=== PATIENT | female | born 1990 | race Caucasian/White ===

== ENCOUNTER → 2020-03-13 08:43 | Outpatient (BNVA) | payer OTHER, SELFPAY | PROVIDERS: Visit Provider Advanced Practice Midwife ==

== ENCOUNTER 2020-03-19 15:24 | Outpatient (REF) | payer OTHER, SELFPAY ==
--- NOTE | ~2020-03-19 | US_ITS ---
EXAMINATION: US PELVIS COMPLETE US TRANSVAGINAL CLINICAL INFORMATION: Pelvic and perineal pain. Check IUD. COMPARISON: None TECHNIQUE: Transabdominal and transvaginal ultrasound of the pelvis is performed. FINDINGS: The uterus is anteverted and anteflexed measuring 6.6 cm in length, 3.1 cm in AP and 5.0 cm in transverse dimension. The uterus is homogeneous in echotexture. There is a copper IUD visualized in correct position within the endometrial canal. No focal lesion seen. Right ovary measures 3.4 x 1.7 x 2.3 cm and volume 7.0 mL. It appears unremarkable. Left ovary measures 2.5 x 2.2 x 2.6 cm and volume 7.5 mL. There is a complex cyst measuring 1.6 x 1.7 x 1.8 cm, likely hemorrhagic cyst. There is a small amount of free fluid in the cul-de-sac. US/US transvaginal IMPRESSION: Intrauterine copper IUD in correct position within the endometrial canal. Complex cyst likely hemorrhagic left ovary. It measures 1.8 cm.
--- NOTE | ~2020-03-19 | US_ITS ---
EXAMINATION: US PELVIS COMPLETE US TRANSVAGINAL CLINICAL INFORMATION: Pelvic and perineal pain. Check IUD. COMPARISON: None TECHNIQUE: Transabdominal and transvaginal ultrasound of the pelvis is performed. FINDINGS: The uterus is anteverted and anteflexed measuring 6.6 cm in length, 3.1 cm in AP and 5.0 cm in transverse dimension. The uterus is homogeneous in echotexture. There is a copper IUD visualized in correct position within the endometrial canal. No focal lesion seen. Right ovary measures 3.4 x 1.7 x 2.3 cm and volume 7.0 mL. It appears unremarkable. Left ovary measures 2.5 x 2.2 x 2.6 cm and volume 7.5 mL. There is a complex cyst measuring 1.6 x 1.7 x 1.8 cm, likely hemorrhagic cyst. There is a small amount of free fluid in the cul-de-sac. US/US pelvic complete IMPRESSION: Intrauterine copper IUD in correct position within the endometrial canal. Complex cyst likely hemorrhagic left ovary. It measures 1.8 cm.
== END 2020-03-19 15:25 | disposition home or self-care (01) ==
LOC: HO.US 15:24
PROVIDERS: PCP Family Medicine; Visit Provider Advanced Practice Midwife
DX: R10.2 Pelvic and perineal pain (principal)
CPT/HCPCS: 76830; 76856

== ENCOUNTER → 2020-03-26 14:25 | Outpatient (BNVA) | payer OTHER, SELFPAY | PROVIDERS: PCP Family Medicine; Visit Provider Advanced Practice Midwife ==

== ENCOUNTER 2020-06-22 14:52 | Outpatient (REF) | payer OTHER, SELFPAY ==
--- NOTE | ~2020-06-22 | US_ITS ---
EXAMINATION: PELVIC ULTRASOUND CLINICAL INFORMATION: Pain COMPARISON: Previous pelvic ultrasound March 2020 TECHNIQUE: Transabdominal and transvaginal pelvic ultrasound was performed. Transvaginal exam was performed for better visualization of the uterus and ovaries. FINDINGS: The uterus is anteverted and measures 6.9 x 2.9 x 4.7 cm in dimension. No focal uterine lesion is seen. There is an IUD in the uterus. Appears low 3 cm from the top of the uterine fundus. The endometrium does not appear thickened. No focal uterine lesion is seen. The cervix is normal appearing. The right ovary is seen transabdominally only and is normal-appearing and measures 2.7 x 2.7 x 1.9 cm. The left ovary is normal-appearing and measures 1.9 x 1.9 x 1.6 cm. The previously identified slightly complex identified left ovarian cyst is no longer seen. There is no fluid in the pelvis. US/US transvaginal IMPRESSION: Low position of IUD 3 cm from the top of the uterine fundus.
--- NOTE | ~2020-06-22 | US_ITS ---
EXAMINATION: PELVIC ULTRASOUND CLINICAL INFORMATION: Pain COMPARISON: Previous pelvic ultrasound March 2020 TECHNIQUE: Transabdominal and transvaginal pelvic ultrasound was performed. Transvaginal exam was performed for better visualization of the uterus and ovaries. FINDINGS: The uterus is anteverted and measures 6.9 x 2.9 x 4.7 cm in dimension. No focal uterine lesion is seen. There is an IUD in the uterus. Appears low 3 cm from the top of the uterine fundus. The endometrium does not appear thickened. No focal uterine lesion is seen. The cervix is normal appearing. The right ovary is seen transabdominally only and is normal-appearing and measures 2.7 x 2.7 x 1.9 cm. The left ovary is normal-appearing and measures 1.9 x 1.9 x 1.6 cm. The previously identified slightly complex identified left ovarian cyst is no longer seen. There is no fluid in the pelvis. US/US pelvic complete IMPRESSION: Low position of IUD 3 cm from the top of the uterine fundus.
== END 2020-06-22 14:53 | disposition home or self-care (01) ==
LOC: HO.US 14:52
PROVIDERS: PCP Family Medicine; Visit Provider Advanced Practice Midwife
DX: N83.292 Other ovarian cyst, left side (principal); R10.2 Pelvic and perineal pain
CPT/HCPCS: 76830; 76856

== ENCOUNTER → 2020-06-29 15:30 | Outpatient (BNVA) | payer OTHER, SELFPAY | PROVIDERS: PCP Family Medicine; Visit Provider Advanced Practice Midwife ==

== ENCOUNTER 2024-05-06 15:36 | Outpatient (REF) | payer BC, SELFPAY ==
--- NOTE | ~2024-05-06 | MR_ITS ---
EXAMINATION: MR BRAIN WITHOUT AND WITH CONTRAST CLINICAL INFORMATION: Weakness and numbness in the upper extremities and face. COMPARISON: None available. TECHNIQUE: Multiplanar, multisequence MRI of the brain was obtained before and after the intravenous administration of 10 mL gadolinium based without reported immediate complications. FINDINGS: Patient's motion. No restricted diffusion. No acute intracranial hemorrhage, mass effect, midline shift, hydrocephalus or herniation. Awad-white matter differentiation is normal. Posterior cranial fossa contents demonstrated no signal abnormality or gross lesions. Sellar/suprasellar region is normal. Craniocervical junction is normal. Flow-void signal within the main cerebral vessels is normal. No abnormal enhancing lesion and or mass in the intra-axial or the extra-axial compartment of the cranium. There is a small developmental venous anomaly, right frontal. Mild prominence of the nasopharynx, nonspecific. MR/MR head/brain wo/w con IMPRESSION: No acute or structural brain abnormality. No abnormal enhancement. No demyelinating plaques. Electronically signed by: Johnnie Roper MD 05/08/2024 09:23 AM EDT
[2024-05-06] MEDS: gadobutroL 10 ML VIAL IVPUSH (16:49)
--- OUTSIDE RECORDS SUMMARY | 2024-05-06 17:35 | XMS_ITS | Data Portability ---
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 Plan of Treatment Reminders Order Date Submit Date Provider Last Modified By Organization Details Last Modified Time Details Appointments None recorded. Lab cytology report, thin prep, smear or scraping, cervical or vaginal 2021 022 [facility] _[id number] [facility], [address], [place], [address], 3 03:46:12 Referral None recorded. Procedures None recorded. Surgeries None recorded. Imaging None recorded. Medication Orders Slynd 4 mg (28) tablet 2021 022 [id number], [address], [place], [place], [id number], 2 03:36:31 Patient Targets Encounter Date Encounter Id Patient Goals Patient Target Last Modified By Organization Details Last Modified Time Pt is 30 yo G0 w/ Paragard and wishes for removal. Removed without complications. Pt given 400mg ibuprofen in office for cramping. Bleeding precautions discussed. RTO as needed for anex. ~LAMONTE Oropeza 2 Not available 01/11/2021 10:09:06 Patient InstructionsNo instructions recorded. Reason for Referral None Reported. Results Created Date Observation Date Name Description Value Unit Range Abnormal Flag Note LastModifiedBy Organization Detail LastModifiedTime 03/16/19 22 03/17/2021 IGP, APTIM A HPV, RFX 16/18 ,45 diagnosis: Garett QUINTANA YUE FOR INTRA EPITH ELIAL LESIO N OR WISAM VALENCIA . Not Available [facility] ([facility]) [address] [facility], [place], [address], 03/18/2021 05:09:16 03/16/19 22 03/17/2021 IGP, APTIM A HPV, RFX 16/18 ,45 specimen adequacy: Garett green Satis facto ry for evalu ation . Endoc ervic al and/o r squam ous metap lasti c cells (endo cervi wendy compo nent) are prese nt. Not Available [facility] ([facility]) [address] [place], [address], 03/18/2021 05:09:16 03/16/19 22 03/17/2021 IGP, APTIM A HPV, RFX 16/18 ,45 clinician provided ICD10: Garett green Z01.4 19 Not Available [facility] ([facility]) [address] [place], [address], 03/18/2021 05:09:16 03/16/19 22 03/17/2021 IGP, APTIM A HPV, RFX 16/18 ,45 performed by: Garett rider, Cytot nataly green (ASCP ) Not Available [facility] ([facility]) [address] [place], [address], 03/18/2021 05:09:16 03/16/19 22 03/17/2021 IGP, APTIM A HPV, RFX 16/18 ,45 . . Not Available [facility] ([facility]) [address] [place], [address], 03/18/2021 05:09:16 03/16/19 22 03/17/2021 IGP, APTIM A HPV, RFX 16/18 ,45 note: Garett green The Pap smear is a scree herb test desig kandace to aid in the detec tion of pratibha ligna nt and malig nant condi tions of the uteri ne cervi x. It is not a diagn ostic proce dure and shoul d not be used as the sole means of detec ting cervi wendy cance r. Both false -posi tive and false -nega tive repor ts do occur . Not Available [facility] ([facility]) [address] [place], [address], 03/18/2021 05:09:16 03/16/19 22 03/17/2021 IGP, APTIM A HPV, RFX 16/18 ,45 test methodology: Commen t This liqui d based ThinP rep(R ) pap test was scree kandace with the use of an image guide nav woody. Not Available [facility] ([facility]) [address] [place], [address], 03/18/2021 05:09:16 03/16/19 22 03/17/2021 IGP, APTIM A HPV, RFX 16/18 ,45 HPV aptima Negati ve negati ve This nucle ic acid ampli ficat ion test detec ts fourt een high- risk HPV types (16,1 8,31, 33,35 ,39,4 5,51, 52,56 ,58,5 9,66, 68) witho ut diffe renti ation . Not Available [facility] ([facility]) [address] [place], [address], 03/18/2021 05:09:16 Result Notes Documentation Provider Name and Address Organization Details Recorded Time Cytology Report, Thin Prep, Smear Or Scraping, Cervical Or Vaginal : NILM/Neg HPV PATRICIA TAYLOR NP [address] [place] [address],[address], [place], [address], [place] [facility] 03/18/2021 10:27:32 Problems No Known Problems Procedures Surgical History Date Name Laterality Status Provider Name and Address Organization Details Recorded Time Date of Last Pap Smear completed PATRICIA TAYLOR NP [address] [facility],[address], [place], [address], [facility] 03/18/2021 10:27:23 1 IUD Removal WOB completed Sherly Skelton PA-C [address] [facility],[address], [place], [address], [facility] 01/11/2021 10:07:54 0 cardiac ablation using fluoroscopy guidance completed Camila Downs [place] [facility] 03/10/2021 15:34:05 5 Colposcopy completed Sherly Skelton PA-C [address] [facility],[address], [place], [address], [facility] 01/11/2021 09:48:14 Imaging Results None recorded. Procedure Notes None recorded. Medical Equipment None Reported. Allergies Allergen ID Allergen Name Allergen Category Reaction Reaction Severity Criticality Documentation Date Start Date Code Code System Note Provider Name and Address Organization Details Recorded Time 06973 Bactrim medicatio n Not available Not available Not available 03/16/2021 74642 9 RxNorm Parveen Davis null, [place] [facility] 2 10:24:17 64270 Product containin g penicilli n (product) medicatio n Not available Not available Not available 03/16/2021 81267 8001 SNOMED Parveen Davis null, [place] [facility] 2 10:24:25 Medications Name Sig Start Date Stop Date Status Note LastModified by Organization Details LastModified Time Slynd 4 mg (28) tablet Take 1 tablet every day by oral route. active Not Available Not Available No t Available Vitals Date Recorded Body height Body mass index (BMI) Body weight Body temperature Systolic blood pressure Diastolic blood pressure Provider Name and Address Organization Details Last Updated DateTime 2 167.64 cm 39.7 kg/m2 460117. 72 g 97.7 [degF] 110 mm[Hg] 60 mm[Hg] Parveen Davis [place] [facility] 2 10:24:06 Date Recorded Body height Body mass index (BMI) Body weight Heart rate Body temperature Systolic blood pressure Diastolic blood pressure Provider Name and Address Organization Details Last Updated DateTime 1 167.64 cm 40.4 kg/m2 082979. 09 g 80 /min 98.4 [degF] 120 mm[Hg] 68 mm[Hg] Sherly rodriguez PA-C [address] [place] [address] [address], [place], [address], [place] [facility] 09:46:53 Social History Question Answer Notes LastModified by Organizat ion Details LastModified Time Tobacco Smoking Status Never Smoker Parveen Davis null, [place] [facility] 03/16/2021 10:28:55 Do You Have An Advance Directive? No [email or web address] Information n ot available 03/16/2021 What Is Your Level Of Alcohol Consumption? Occasional [email or web address] Information not available 01/11/2021 Is Blood Transfusion Acceptable In An Emergency? Yes Information not available 03/16/2021 What Is Your Level Of Caffeine Consumption? Moderate [email or web address] Information not available 01/11/2021 In The 14 Days Before Symptom Onset, Have You Had Close Contact With A Laboratory-confirm ed COVID-19 While That Case Was Ill? No Information n ot available 03/16/2021 In The 14 Days Before Symptom Onset, Have You Had Close Contact With A Person Who Is Under Investigation For COVID-19 While That Person Was Ill? No [email or web address] Information not available 03/16/2021 Are You Currently Employed? Yes [email or web address] Information not available 03/16/2021 What Type Of Diet Are You Following? 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 0 [email or web address] Information not available 03/16/2021 Do You Use Protection During Sex? No [email or web address] Information not available 01/11/2021 What Is Your Relationship Status? [email or web address] Information not available 01/11/2021 Do You Use Your Seat Belt Or Car Seat Routinely? Yes [email or web address] Information not available 03/16/2021 Are You Sexually Active? Yes [email or web address] Information not available 03/16/2021 Do You Use Any Illicit Or Recreational Drugs? No Information not available 01/11/2021 Has Tobacco Cessation Counseling Been Provided? No Information not available 01/11/2021 Sex: Unknown Functional Status Question Answer Note LastModified by Organization D etails LastModified Time Are you able to care for yourself? Yes [email or web address] Information n ot available 03/16/2021 Mental Status None recorded. Family History Relationship Description Onset Age of this Age Resolved Age Notes LastModified by Organization Details LastModified Time Father No current problems or disability [email or web address] Not available 09/2021 10:28:39 Mother No current problems or disability [email or web address] Not available 09/2021 10:28:39 Medical History Condition Response Allergies (Food, seasonal, environmental ) N Heart Problems N Other N Anxiety/Depression N Blood Transfusion N Drug/Latex Allergies/Reactions N Thyroid Problems N Kidney or Bladder Problems N Fibromyalgia/Arthritis/Rheum N Blood Clots/Clotting Disorder Y Dermatologic Disorders N GI Problems N Defects or Inherited Disease N Breast Problem N Anemia N DEXA N Anesthesia Complications N Diabetes N Hepatitis/Liver Disease N Other Psychiatric Illness N History of Sexually Transmitted Disease N History of abnormal pap N Cancer N Hematologic (blood) disorders Y Varicosities N Abuse/Domestic Violence N Lung Disease (Asthma,TB, Pneumonia) N Trauma/Violence N Endometriosis N High Cholesterol N Headaches N Hypertension N Neurologic/Epilepsy/Stroke N Gynecological History Statement/Question Response Abnormal Pap Y Flow Moderate Date of LMP 02/16/2021 STIs/STDs N Colposcopy 02/06/2014 HPV Vaccine Y Duration of Flow (days) 5 Current Control Method Condoms Frequency of Cycle (Q days) 28 Sexually Active? Y Control at End of Visit BCPs Menses Monthly Y Date of Last Pap Smear 03/16/2021 Sexual Problems? N LMP Approximate Desired Control Method BCPs Obstetrics History GPAL:G 0 P 0 0 0 0 Immunizations Vaccine Type Date Status Note Provider Nam e and Address Organization Details Recorded Time COVID-19, mRNA, LNP-S, PF, 100 mcg/0.5mL dose or 50 mcg/0.25mL dose 04/20/2020 completed Parveen Davis null, [place] [facility] 03/16/2021 10:29:32 COVID-19, mRNA, LNP-S, PF, 100 mcg/0.5mL dose or 50 mcg/0.25mL dose 05/18/2020 completed Parveen Davis null, [place] [facility] 03/16/2021 10:29:47 Past Encounters Encounter ID Performer Location Encounter Start Date Encounter Closed Date Diagnosis/Indication Diagnosis SNOMED-CT Code Diagnosis ICD10 Code Diagnosis Note [id number] Sherly Skelton PA-C [facility] [place] [address],[facility] [address] [place] [address] 01/11/2021 08:58:00 01/11/2021 13:35:25 Pain in pelvis 09287778 R10.2 Removal of intrauterine device 14837509 Z30.432 [id number] Becky Farrell [facility] [place] [address],[facility] [address] [place] [address] 03/16/2021 10:02:38 03/16/2021 11:06:01 Gynecologic examination 85054788 Z01.419 SBE, contracept ion, safe relationsh ips, diet and exercise discussed. Has one male sexual partner, feels safe in this relationsh ip. Pap smear with cotesting collected today. Discussed ASCCP guidelines . Scanty menses on exam. Today is CD1. Might need repeat pap, pt v/u. Contracept ion care management 822956280 Z30.9 Hx of DVT. States her other providers involved in this management , including a hematologi st and PCP, stated this was an isolated incident r/t having a cardiac ablation. States these providers have approved her using either P4 or non-hormon al contracept ion. Presented for care last visit because she needed a paragard removed from her cervix. Discussed LARC, POP, Phexxi and condoms. Pt doesn't want to do LARC again after the experience she had w/ her paragard. Currently using condoms but her and her partner don't like this option. Not interested in Phexxi. Desires trial of POP. Agreed to a trial of slynd. Reviewed how to start this medication and bleeding expectatio ns. Patient safe to {{start* c ontinue re sume}} POP according to [facility] guidelines and e-scribed for one year. Sample given. Instructed to call if Rx is over $20 so we can send it to the [facility]. Dicsussed stopping pills when she is ready to start TTC. Health Concerns Section Related Observation LastModified by Organization Detai ls LastModified Time None Recorded Concern Status LastModified by Organization Details LastModified Time None Recorded Advance Directives Directive N: Payers Encounter Date Sequence Insurance Name Policy Number Policy Patel Covered Member ID Ptael Member ID Guarantor Name 01/11/2021 1 [facility] [id number] Rupa Tran [id number] 1 Rupa Tran 03/16/2021 1 [facility] [id number] Rupa Tran [id number] 1 Rupa Tran Notes Date Note Type Note Provider Name and Address Organization Details Recorded Time 01/11/2021 text/html Pt is new to our practice, recently moved from [place]. c/o abd pain, cramping, heavy periods with copper IUD. She had it placed in 07/2019 and wishes to have it removed at this time. She had US approx 6 mos ago for confirmation of placement due to symptoms and it was confirmed OK at that time. Symptoms have gotten worse since then. She denies any other abd pain, fever, vaginal discharge, itching. She is sexually active, , monogamous. ~EH Sherly Skelton PA-C [address] [place] [address],[address], [place], [address], [place] [facility] 01/11/2021 10:11:12 03/16/2021 text/html Pt is here today for her annual exam. Pt currently uses condoms for contraception. Pt states she had a blood clot and had to have IUD removed. Pt states she has been cleared by her PCP to resume control if she wishes. Pt would like to discuss POP options. Pt states she may want to ttc in the next 1-2 years. Pt declines need for assistant cross country coach in room during today's exam. Becky charles, [place] [facility] 03/16/2021 11:36:07 OBGyn Episode No OBEpisode recorded.
--- OUTSIDE RECORDS SUMMARY | 2024-05-06 17:35 | XMS_ITS | Data Portability ---
Author Organization STEPHANIE DONALD Peñaloza_[facility] Address [address] [place] [address] Assessment Encounter Date Assessment Date Assessment LastModified by Organization Details LastModified Time 01/15/2021 01/15/2021 COVID vaccine X 2 [email or web address] Not available 01/15/2021 09:58:16 Plan of Treatment Reminders Order Date Submit Date Provider Last Modified By Organization Details Last Modified Time Details Appointments None recorded. Lab vitamin D, 25-hydroxy, total, serum 2020 021 On license of [facility] ([facility]), [address], [facility], [place], [address], 23:21:41 CBC w/ auto diff 2020 021 On license of [facility] ([facility]), [address], [facility], [place], [address], 22:39:20 CMP, serum or plasma 2020 021 On license of [facility] ([facility]), [address], [facility], [place], [address], 23:09:19 TSH, serum or plasma 2020 021 On license of [facility] ([facility]), [address], [facility], [place], [address], 23:32:43 lipid panel, serum 2020 On license of [facility] ([facility]), [address], [facility], [place], [address], 23:09:26 urinalysis, complete 2020 [email or web address] [facility] ([facility]), [address], [facility], [place], [address], 09:20:14 HbA1c (hemoglobin A1c), blood 2020 021 On license of [facility] ([facility]), [address], [facility], [place], [address], 01:06:40 Referral hematologis t referral - Please schedule and contact patient with appointment information . Fax confirmatio n date/time to [phone] Attn: Sara Thank you 2020 [email or web address] Brunilda Javed MD, [address] [place] [address], [address], 11:28:05 Procedures None recorded. Surgeries None recorded. Imaging None recorded. Medication Orders None recorded. Patient TargetsNo targets recorded. Patient Instructions Encounter Date Encounter Id Patient Instructions Last Modified By Organization Details Last Modified Time 01/15/2021 [id number] supraventricular tachycardia: care instructions [email or web address] Not available 01/15/2021 10:08:50 body mass index: care instructions [email or web address] Not available 01/15/2021 10:08:50 learning about healthy weight [email or web address] Not available 01/15/2021 10:08:50 Reason for Referral Please schedule and contact patient with appointment information. Fax confirmation date/time to [phone] Attn: Sara Thank you Referring Physician: Miesha Painting, Family Medicine, Encounter Date: 01/15/2021 Results Created Date Observation Date Name Description Value Unit Range Abnormal Flag Note LastModifiedBy Organization Detail LastModifiedTime 01/16/20 21 01/15/2021 CBC WITH DIFFE RENTI AL WBC 8.3 x1000 /mm3 4.3-10 .0 Not Available [facility] [place] (Lab) [address] [place] [address], [address], 01/15/2021 22:44:28 01/16/20 21 01/15/2021 CBC WITH DIFFE RENTI AL RBC 4.50 x1000 000/m m3 4.00-5 .40 Not Available [facility] [place] (Lab) [address] [place], [address], 01/15/2021 22:44:28 01/16/20 21 01/15/2021 CBC WITH DIFFE RENTI AL HGB 13.5 gm/dL 12.0-1 6.0 Not Available [facility] [place] (Lab) [address] [place], [address], 01/15/2021 22:44:28 01/16/20 21 01/15/2021 CBC WITH DIFFE RENTI AL HCT 46.1 % 35.0-4 7.0 Not Available [facility] [place] (Lab) [address] [place], [address], 01/15/2021 22:44:28 01/16/20 21 01/15/2021 CBC WITH DIFFE RENTI AL MCV 102.4 fL 81.0-9 7.0 high Not Available [facility] [place] (Lab) [address] [place], [address], 01/15/2021 22:44:28 01/16/20 21 01/15/2021 CBC WITH DIFFE RENTI AL MCH 30.0 pg 27.0-3 4.0 Not Available [facility] [place] (Lab) [address] [place] [address], [address], 01/15/2021 22:44:28 01/16/20 21 01/15/2021 CBC WITH DIFFE RENTI AL MCHC 29.3 % 32.0-3 6.0 low Not Available [facility] [place] (Lab) [address] [place], [address], 01/15/2021 22:44:28 01/16/20 21 01/15/2021 CBC WITH DIFFE RENTI AL RDW 13.5 11.5-1 4.5 Not Available [facility] [place] (Lab) [address] [place], [address], 01/15/2021 22:44:28 01/16/20 21 01/15/2021 CBC WITH DIFFE RENTI AL platelet 403 x1000 /mm3 150-40 0 high Not Available [facility] [place] (Lab) [address] [place], [address], 01/15/2021 22:44:28 01/16/20 21 01/15/2021 CBC WITH DIFFE RENTI AL diff type? Auto Diff Not Available [facility] (Lab) [address] [place], [address], 01/15/2021 22:44:28 01/16/20 21 01/15/2021 CMP albumin 4.3 gm/dL 3.5-5. 2 Not Available [facility] [place] (Lab) [address] [place], [address], 01/15/2021 23:09:24 01/16/20 21 01/15/2021 CMP calcium, serum 9.5 mg/dL 8.4-10 .2 Not Available [facility] [place] (Lab) [address] [place], [address], 01/15/2021 23:09:24 01/16/20 21 01/15/2021 CMP T. protein 7.4 gm/dL 6.0-8. 3 Not Available [facility] [place] (Lab) [address] [place], [address], 01/15/2021 23:09:24 01/16/20 21 01/15/2021 CMP glucose level 102 mg/dL 70-105 Not Available [facility] [place] (Lab) [address] [place], [address], 01/15/2021 23:09:24 01/16/20 21 01/15/2021 CMP BUN 15 mg/dL 7-26 Not Available [facility] [place] (Lab) [address] [place], [address], 01/15/2021 23:09:24 01/16/20 21 01/15/2021 CMP creatinine level 0.8 mg/dL 0.6-1. 1 Not Available [facility] [place] (Lab) [address] [place], [address], 01/15/2021 23:09:24 01/16/20 21 01/15/2021 CMP bili total 0.5 mg/dL 0.2-1. 2 Not Available [facility] [place] (Lab) [address] [place], [address], 01/15/2021 23:09:24 01/16/20 21 01/15/2021 CMP alk phos 100 U/L 40-150 Not Availab le [facility] [place] (Lab) [address] [place], [address], 01/15/2021 23:09:24 01/16/20 21 01/15/2021 CMP AST 16 U/L 5-34 Not Available [facility] [place] (Lab) [address] [place], [address], 01/15/2021 23:09:24 01/16/20 21 01/15/2021 CMP sodium 140 mmol/ L 136-14 5 Not Available [facility] [place] (Lab) [address] [place], [address], 01/15/2021 23:09:24 01/16/20 21 01/15/2021 CMP potassium 4.5 mmol/ L 3.5-5. 1 Not Available [facility] [place] (Lab) [address] [place], [address], 01/15/2021 23:09:24 01/16/20 21 01/15/2021 CMP chloride 108 mmol/ L 98-107 high Not Available [facility] [place] (Lab) [address] [place], [address], 01/15/2021 23:09:24 01/16/20 21 01/15/2021 CMP CO2 20 mmol/ L 22-29 low Not Available [facility] [place] (Lab) [address] [place], [address], 01/15/2021 23:09:24 01/16/20 21 01/15/2021 CMP agap 12 mmol/ L 6-17 Not Available [facility] [place] (Lab) [address] [place], [address], 01/15/2021 23:09:24 01/16/20 21 01/15/2021 CMP ALT 13 U/L <=55 Not Available [facility] [place] (Lab) [address] [place], [address], 01/15/2021 23:09:24 01/16/20 21 01/15/2021 CMP glomerular filtration rate (MDRD) 83 mL/mi n >=60 The GFR is calcu lated using the MDRD formu la and is valid for adult s over 18 yea rs with adjus tment s for age, sex, and race. The calcu latio n is not valid for pa tient s on dialy sis or with rapid ly montenegro ing kidne y funct ion. Patie nts with GFR less than 60 are defin ed as edinin g chron ic kidne y disea se. A gradi ng syste m o f decre ased kidne y funct ion has been propo sed: 90 - 60 mild, 59 -30 moder ate, 29 -15 sever e. Not Available [facility] [place] (Lab) [address] [place], [address], 01/15/2021 23:09:24 01/16/20 21 01/15/2021 LIPID PROFI LE cholesterol 259 mg/dL <=199 high Not Available [facility] [place] (Lab) [address] [place] [address], [address], 01/15/2021 23:09:26 01/16/20 21 01/15/2021 LIPID PROFI LE triglyceride 171 mg/dL <=149 high Not Available [facility] [place] (Lab) [address] [place] [address], [address], 01/15/2021 23:09:26 01/16/20 21 01/15/2021 LIPID PROFI LE HDL 60 mg/dL >=60 HDL Refer ence Range based on NCEP guide lines Not Available [facility] [place] (Lab) [address] [place], [address], 01/15/2021 23:09:26 01/16/20 21 01/15/2021 LIPID PROFI LE LDL 165 mg/dL <=99 high LDL Refer ence Range based on NCEP guide lines Not Available [facility] [place] (Lab) [address] [place], [address], 01/15/2021 23:09:26 01/16/20 21 01/15/2021 LIPID PROFI LE cholesterol/ HDL ratio 4 TATE STERO L/HDL INTER PRETA TION: <4.0 = DECRE ASED CORON JYOTHI RISK 4.1-5 .9 = AVERA GE CORON JYOTHI RISK >6.0 = INCRE ASED CORON JYOTHI RISK Not Available [facility] [place] (Lab) [address] [place], [address], 01/15/2021 23:09:26 01/16/20 21 01/15/2021 VITAM IN D 25 SP vitamind 25-hyd 24.8 NG/mL 30.0-5 0.0 low Vitam in D Statu s Range Defic iency <20 ng/mL Insuf ficie ncy 20 - 30 ng/mL Suffi cienc y 31 - 100 ng/mL Toxic ity >100 ng/mL Not Available [facility] [place] (Lab) [address] [place], [address], 01/15/2021 23:21:41 01/16/20 21 01/15/2021 TSH TSH 0.94 uIU/m L 0.35-4 .94 Not Available [facility] [place] (Lab) [address] [place], [address], 01/15/2021 23:32:43 01/16/20 21 01/15/2021 A1C HEMOG LOBIN HGB A1C 5.8 % 4.0-6. 0 Not Available [facility] [place] (Lab) [address] [place], [address], 01/16/2021 01:06:40 01/16/20 21 01/15/2021 A1C HEMOG LOBIN estimated average glucose 120 mg/dL Not Available [facility] [place] (Lab) [address] [place], [address], 01/16/2021 01:06:40 01/16/20 21 01/15/2021 AUTOM ATED DIFF neut percent 65 % 53-75 Not Available [facility] [place] (Lab) [address] [place], [address], 01/15/2021 22:44:26 01/16/20 21 01/15/2021 AUTOM ATED DIFF lymph percent 28 % 20-40 Not Available [facility] [place] (Lab) [address] [place], [address], 01/15/2021 22:44:26 01/16/20 21 01/15/2021 AUTOM ATED DIFF mono percent 5 % 3-7 Not Available [facility] [place] (Lab) [address] [place], [address], 01/15/2021 22:44:26 01/16/20 21 01/15/2021 AUTOM ATED DIFF eos percent 1 % 1-6 Not Available [facility] [place] (Lab) [address] [place], [address], 01/15/2021 22:44:26 01/16/20 21 01/15/2021 AUTOM ATED DIFF baso percent 1 % 0-1 Not Available [facility] [place] (Lab) [address] [place], [address], 01/15/2021 22:44:26 01/16/20 21 01/15/2021 AUTOM ATED DIFF neutro auto abs 5.4 x1000 /mm3 1.8-7. 7 Not Available [facility] [place] (Lab) [address] [place], [address], 01/15/2021 22:44:26 01/16/20 21 01/15/2021 AUTOM ATED DIFF lymph auto abs 2.3 x1000 /mm3 1.0-4. 8 Not Available [facility] [place] (Lab) [address] [place], [address], 01/15/2021 22:44:26 01/16/20 21 01/15/2021 AUTOM ATED DIFF mono auto abs 0.4 x1000 /mm3 0.1-1. 0 Not Available [facility] [place] (Lab) [address] [place], [address], 01/15/2021 22:44:26 01/16/20 21 01/15/2021 AUTOM ATED DIFF eos auto abs 0.1 x1000 /mm3 0.0-0. 5 Not Available [facility] [place] (Lab) [address] [place], [address], 01/15/2021 22:44:26 01/16/20 21 01/15/2021 AUTOM ATED DIFF basophil auto abs 0.1 x1000 /mm3 0.0-0. 2 Not Available [facility] [place] (Lab) [address] [place], [address], 01/15/2021 22:44:26 01/16/20 21 01/15/2021 AUTOM ATED DIFF Ig percent .20 % .00-.5 9 Not Available [facility] [place] (Lab) [address] [place], [address], 01/15/2021 22:44:26 01/16/2001/15/2021 AUTOM ATED DIFF Ig auto abs .020 x1000 /mm3 .000-. 384 Not Available [facility] [place] (Lab) [address] [place], [address], 01/15/2021 22:44:26 Result Notes None recorded. Problems Name Problem SNOMED Code Status Onset Date Resolution Date Notes Provider Name and Address Organization Details Recorded Time Supraventricul ar tachycardia 5002223 Active 2020 Miesha Painting MD [address] [place] [address], [phone], [facility] 09:49:55 History of pulmonary embolus 306585182 Active 2020 Miesha Painting MD [address] [place] [address], [phone], [facility] 09:57:52 Problem Notes None recorded. Procedures Surgical History Date Name Laterality Status Provider Name and Address Organization Details Recorded Time 08/07/2019 Date of Last Pap Smear completed [facility] 01/15/2021 09:25:45 Imaging Results None recorded. Procedure Notes None recorded. Medical Equipment None Reported. Allergies Allergen ID Allergen Name Allergen Category Reaction Reaction Severity Criticality Documentation Date Start Date Code Code System Note Provider Name and Address Organization Details Recorded Time 899750 Product containin g penicilli n (product) medicatio n rash Not available Not available 01/15/2021 07373 8001 SNOMED [facility] 09:23:02 391726 Bactrim medicatio n rash Not available Not available 01/15/2021 02217 9 RxNorm [facility] 09:23:12 Medications Not known to be on any medication Vitals Date Recorded Body weight Body temperature Heart rate Body mass index (BMI) Body height Systolic blood pressure Diastolic blood pressure Provider Name and Address Organization Details Last Updated DateTime 248339. 53 g 97.5 [degF] 97 /min 43.1 kg/m2 168.91 cm 137 mm[Hg] 60 mm[Hg] Sarah BROWN [facility] 09:23:19 Social History Question Answer Notes LastModified by Organizat ion Details LastModified Time Tobacco Smoking Status Never Smoker STEPHANIE Genao [facility] 01/15/2021 09:24:14 In The Last 12 Months Did You Skip Medications To Save Money? No [email or web address] Information not available 01/15/2021 In The Last 12 Months, Was There A Time When You Needed To See A Doctor But Could Not Because Of Cost? No [email or web address] Information not available 01/15/2021 In The Last 12 Months, Have You Ever Had To Go Without Health Care Because You Didn? t Have A Way To Get There? No [email or web address] Information not available 01/15/2021 In The Last 12 Months Did You Ever Eat Less Than You [place] You Should Because There Wasn? t Enough Money For Food? No [email or web address] Information not available 01/15/2021 In The Past 12 Months Has The Social Median, Gas, Oil, Or Water [employer]news Threatened To Shut Off Services In Your Home? No [email or web address] Information not available 01/15/2021 Are You Worried That In The Next 2 Months You May Not Have Stable Housing? No [email or web address] Information not available 01/15/2021 Do You Feel Physically And Emotionally Unsafe Where You Currently Live? No [email or web address] Information not available 01/15/2021 Do You Want Help Finding Or Keeping Work Or A Job? No [email or web address] Information not available 01/15/2021 Do You Want Help With School Or Training? For Example, Starting Or Completing Job Training Or Getting A High School Diploma, GED, Or Equivalent? No [email or web address] Information not available 01/15/2021 Do You Often Feel Lonely? No [email or web address] Information not available 01/15/2021 Have You Had A Fever And/or Symptoms Of A Lower Respiratory Illness (cough, Difficulty Breathing, Etc)? No [email or web address] Information not available 01/15/2021 Have You Had Any Of These Symptoms: Chills ,Headache, Fatigue, Muscle Or Body Aches , Sore Throat, New Loss Of Taste Or Smell, Nausea Or Vomiting, Or Diarrhea? No [email or web address] Information not available 01/15/2021 Have You Had A COVID-19 Vaccine In The Last 7 Days? No [email or web address] Information not available 01/15/2021 Sex: Female Functional Status None recorded. Mental Status None recorded. Family History Relationship Description Onset Age of this Age Resolved Age Notes LastModified by Organization Details LastModified Time Father No current problems or disability [email or web address] Not available 01/15 09:24:10 Mother No current problems or disability [email or web address] Not available 01/15 09:24:10 Medical History No medical history recorded. Gynecological History Statement/Question Response Date of Last Pap Smear 08/07/2019 Date of LMP 12/22/2020 Obstetrics History GPAL:G 0 P 0 0 0 0 Past Encounters Encounter ID Performer Location Encounter Start Date Encounter Closed Date Diagnosis/Indication Diagnosis SNOMED-CT Code Diagnosis ICD10 Code Diagnosis Note [id number] Miesha Painting MD [facility] 8[facility]L [address] [facility], [address]th [place] [address] 01/15/2021 09:18:17 01/15/2021 10:09:46 Adult health examination 073690904 Z00.00 History of pulmonary embolus 663517915 Z86.711 Supraventr icular tachycardia 9022527 I47.1 s/p ablation Body mass index 30+ - obesity 890031500 Z68.30 Vitamin D deficiency 347 33167 E55.9 Health Concerns Section Related Observation LastModified by Organization Detai ls LastModified Time None Recorded Concern Status LastModified by Organization Details LastModified Time None Recorded Advance Directives Directive None Recorded Payers Encounter Date Sequence Insurance Name Policy Number Policy Patel Covered Member ID Patel Member ID Guarantor Name 01/15/2021 1 [facility] [id number] Rupa Tran [id number] Rupa Tran Notes Date Note Type Note Provider Name and Address Organization Details Recorded Time 01/15/2021 text/html 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
--- OUTSIDE RECORDS SUMMARY | 2024-05-06 17:35 | XMS_ITS | Continuity of Care Document ---
Author Organization [facility] Address [address] [place] [address]- Care Team Providers Care Stocking Inspector Name Role Phone Melida Madden MD Primary Care Physician [place] [facility] [place] - 05/02/24 [facility] [address] [place] [address]- Attending Physician: AdmMarcio kaur Admitting Physician: AdmtrMarcio Referring Physician: Admtr, Ar8 Encounter Type: Triage Allergies, Adverse Reactions, Alerts Substance Criticality Severity Reaction Reaction Severity Status penicillins Active Bactrim Active Immunizations Given and Recorded Vaccine Date Status Refusal Reason Poliovirus Vaccine, Inactivated 07/07/93 Recorded Poliovirus Vaccine, Inactivated 04/06/90 Recorded Poliovirus Vaccine, Inactivated 88 Recorded Poliovirus Vaccine, Inactivated 88 Recorded diphtheria/tetanus/pertussis, acel(DTaP) 07/07/93 Recorded diphtheria/tetanus/pertussis, acel(DTaP) 04/06/90 Recorded diphtheria/tetanus/pertussis, acel(DTaP) 01/06/89 Recorded diphtheria/tetanus/pertussis, acel(DTaP) 88 Recorded diphtheria/tetanus/pertussis, acel(DTaP) 88 Recorded Measles/Mumps/Rubella Virus Vaccine 11/06/89 Recor ded haemophilus b conjugate (PRP-T) vaccine 11/06/89 R ecorded Medications Colace sodium 100 mg oral capsule 100 mg, 1, capsule, By Mouth, 2 times a day, PRN, # 20 capsule, Refills 0, Tot. Refills 0, Maintenance, for constipation, 12/15/22 10:06:00 AM EST, Route to Pharmacy Electronically, [facility] #[id number], Partial fill upon patient request if the prescription is for a schedule II opioid drug., 168.7, cm, 12/15/22 7:44:00 EST, Height, 121.2, kg, 12/15/22 7:44:00 EST, Dry Weight Start Date: 12/15/22 Status: Ordered Quantity: 20.0 Unit: capsule Repeat number: 1 gabapentin 100 mg oral capsule 300 mg, 3, capsule, By Mouth, Daily at bedtime, Start 1 cap nightly. May increase to 2 caps in 3 days, then 3 caps 3 days later, for nerve pain, # 90 capsule, Refills 0, Tot. Refills 0, Maintenance, 04/22/24 2:32:00 PM EDT, Route to Pharmacy Electronically, [facility] #[id number], Partial fill upon patient request if the prescription is for a schedule II opioid drug., 168.7, cm, 04/02/24 15:45:00 EST, Height, 121.2, kg, 12/15/22 7:44:00 EST, Dry Weight Start Date: 04/22/24 Status: Ordered Quantity: 90.0 Unit: capsule Repeat number: 1 LORazepam 1 mg oral tablet 1 tablet = 1 mg, By Mouth, Once, PRN as needed for anxiety, 1/2 -1 tab up to 1 hour prior to MRI, may take second dose if needed at MRI. Do not drive after taking this medicine., # 2 tablet, 0 Refills, Soft Stop, 04/24/24 6:37:00 AM EDT, Tablet, [facility] #[id number], Partial fill upon patientrequest if the prescription is for a schedule II opioid drug., 168.7, cm, 04/02/24 15:45:00 EST, Height, 121.2, kg, 12/15/22 7:44:00 EST, Dry Weight Start Date: 04/24/24 Status: Ordered Quantity: 2.0 Unit: tablet Repeat number: 1 oxyCODONE 5 mg oral tablet 5 mg, 1, tablet, By Mouth, Every 6 hours, PRN, you may filll this prescription for fewer pills. MASSpat reviewed, # 12 tablet, Refills 0, Tot. Refills 0, Maintenance, Pain , Severe, 12/15/22 10:06:00 AM EST, Route to Pharmacy Electronically, [facility] #[id number], Partial fill upon patient request, 168.7, cm, 12/15/22 7:44:00 EST, Height, 121.2, kg, 12/15/22 7:44:00 EST, Dry Weight Start Date: 12/15/22 Status: Ordered Quantity: 12.0 Unit: tablet Repeat number: 1 ParaGard intrauterine device 0 Refills, Maintenance, 07/08/19 10:53:00 AM EDT Start Date: 07/08/19 Status: Ordered Repeat number: 1 Slynd = 4 mg, By Mouth, Daily, 0 Refills, Maintenance, 09/13/22 8:28:00 AM EDT, Partial fill upon patient request if the prescription is for a schedule II opioid drug. Start Date: 09/13/22 Status: Ordered Repeat number: 1 Problem List Condition Confirmation Course Effective Dates Status H ealth Status Informant DVT of lower limb, 2019, with PE post cardiac ablation- provoked- anticoag till 09/2019 Confirmed Active Allergic rhinitis Confirmed Active Anemia Confirmed Active Contraception Confirmed Active Obese class II Confirmed Active Obesity (BMI 30-39.9) Confirmed Active Heart palpitations Confirmed Active History of Pulmonary emboli- s/p cardiac ablation, provoked dvt/ PE, anticoag till 09/2019 Confirmed Active Snoring Confirmed Active Social History Social History Type Response Smoking Status Never smoker; Tobacc o user in household: No entered on: 05/20/15 Sex Sex Representation Female (finding) EKG study * Event Display: EKG Authored Date: * Event Display: EKG Authored Date: Laboratory * Event Display: Laboratory Result Scanned Authored Date: Patient Care team information Care Team Personnel Name: Melida Madden MD Position: [facility] Physician - Primary Care Member Role: PCP Address: [address] [place] [address] Telecom: Name: Michelle Self RN Position: [facility] Nurse Member Role: Primary Care Nurse Name: Delmar MARK, Honey Position: [facility] Hospital Adjunct Instructor Of Women'S Studies Member Role: Primary Care Nurse Care Team Related Persons Name: ALLYSON KOLB Name: KETURAH LEAHY Insurance Providers Guarantor name: MARIANO PEREZ [facility] Plan Information #: 1 Payer: O [employer] Member Number: NA Policy Number: NA Group Number: NA
== END 2024-05-06 15:37 | disposition home or self-care (01) ==
LOC: HO.MRI 15:36
PROVIDERS: PCP Pediatrics; Visit Provider Pediatrics
DX: G37.9 Demyelinating disease of central nervous system, unspecified (principal)
CPT/HCPCS: 70553; A9585

== ENCOUNTER → 2024-05-06 15:55 | Outpatient (BNV) | payer BC, SELFPAY | PROVIDERS: PCP Pediatrics; Visit Provider Radiology Diagnostic Radiology | DX: R53.1 Weakness (principal); R20.2 Paresthesia of skin | CPT/HCPCS: 70553 ==

== ENCOUNTER 2024-08-14 12:41 | Outpatient (AMB) | payer BC, SELFPAY ==
--- NOTE | 2024-08-14 12:45 | A.OFFVIS_ITS ---
Intake Visit Reasons: DD Allergies penicillin V Allergy (Unknown, Verified 03/26/20 14:26) rash Penicillins (PCN) Allergy (Unknown, Verified 03/26/20 14:26) UNKNOWN Sulfa (Sulfonamide Antibiotics) Allergy (Unknown, Verified 03/26/20 14:26) rash sulfamethoxazole (From BACTRIM) Allergy (Unknown, Verified 03/26/20 14:26) UNKNOWN trimethoprim (From BACTRIM) Allergy (Unknown, Verified 03/26/20 14:26) UNKNOWN HPI Comments Details: Did not feel good on Prednisone but completed the course. No further shooting pains down left arm to hand. The numbness is also a bit better. No new symptoms. She is a previously healthy 34-year-old woman with no previous medical problems, who noticed altered sensation in the left hand involving the thumb and index finger in May 2024. Periodically, she would also get prickly sensation and pain radiating from the left neck into the left arm and hand.? No injury was involved.? Some days, the pain can be sharp.? 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 She's not noticed any degree of weakness as far as she can remember.? She's never had any neurological symptoms before. Brain MRI shows non specific white matter hyperintensities that are deep white matter and subcortical , a total of 7. MRI C spine shows a single subtle lesion at C2 level in the left posterior cord seen on two different sequences. [facility] Medical History (Updated 08/14/24 @ 12:51 by Ilir Herrera MD) Demyelinating disease DVT (deep venous thrombosis) Surgical History H/O cardiac radiofrequency ablation Social History (Updated 08/13/24 @ 19:59 by Kiesha Dowd MA) Alcohol intake: current Alcohol intake frequency: a few times a month Patient Tobacco Use Status: Never used Tobacco Review of Systems Const Details: Sleep:? Difficulty getting to sleepdenies.? Difficulty maintaining sleepdenies?.? Urge to move legsdenies.? Teeth grindingdenies.? Shouting or Kicking during sleep denies.? Abnormal behavior during sleepdenies.? Excessive sleepdenies.? Snoring denies.? Daytime sleepinessdenies. ???General/Constitutional:? Change in appetitedenies.? Chillsdenies.? Fatiguedenies.? Feverdenies.? Weight gaindenies.? Weight lossdenies. ???Ophthalmologic:? Blurred visiondenies.? Diminished visual acuitydenies. ???ENT:? Stuffinessdenies.? Decreased hearingdenies.? Dry mouthdenies.? Ear paindenies.? Nosebleeddenies.? Ringing in the earsdenies.? Sinus paindenies.? Sore throat denies.? Swollen glandsdenies. ???Endocrine:? Cold intolerancedenies.? Excessive thirstdenies.? Frequent urinationdenies.? Heat intolerancedenies. ???Respiratory:? Shortness of breathdenies.? Chest paindenies.? Coughdenies. ???Breast:? Breast lumpdenies.? Nipple dischargedenies. ???Cardiovascular:? Chest pain at restdenies.? Chest pain with exertiondenies.? Claudicationdenies .? Dizzinessdenies.? Fluid accumulation in the legsdenies.? Irregular heartbeat denies.? Palpitationsdenies. ???Gastrointestinal:? Abdominal paindenies.? Constipationdenies.? Diarrheadenies.? Difficulty swallowingdenies.? Heartburndenies.? Nauseadenies.? Rectal bleedingdenies. ???Hematology:? Easy bruisingdenies.? Prolonged bleedingdenies. ???Genitourinary:? Frequent urinationdenies.? Urgencydenies.? Incontinencedenies.? Erectile Dysfunctiondenies. ???Musculoskeletal:? Neck paindenies.? Back paindenies.? Muscle achesdenies.? Painful jointsdenies.? Sciaticadenies.? Weaknessdenies. ???Podiatric:? Difficulty walkingdenies.? Foot numbnessdenies. ???Neurologic:? Difficulty swallowingdenies.? Balance difficultydenies.? Coordinationnormal.? Difficulty speakingdenies.? Dizzinessdenies.? Faintingdenies.? Gait abnormality denies.? Headachedenies.? Loss of strengthdenies.? Loss of use of extremity denies.? Low back paindenies.? Memory lossdenies.? Seizuresdenies.? Ticsdenies.? Tingling/NumbnessLUE.? Transient loss of visiondenies.? Tremordenies. ???Psychiatric:? Anxietydenies.? Auditory/visual hallucinationsdenies.? Delusionsdenies.? Depressed mooddenies.? Stressorsdenies.? Substance abusedenies.? Suicidal thoughtsdenies. Physical Exam Neuro Other: Neurological: Abnormal neurological findings:??slightly altered sensation in C6 dermatome on left( 70% of right) . Minimal, trace left triceps weakness has resolved.?Mental Status:??alert and oriented X 3,?Normal attention, orientation, memory and affect.?Cranial Nerves:??Pupils are equal, round and reactive to light. Fundoscopy shows normal disc bilaterally. External occular muscles are intact. Visual matthews are full, no ptosis. Face is symmetrical, no facial weakness or droop. Facial sensations are normal. Tongue protrudes in midline. Palate elevates symmetrically. Shoulder shrugging is normal..?Motor Examination:??Normal muscle tone, bulk and strength,?No atrophy or fasciculations,?No drift of the extended upper extremities,?Deep tendon reflexes are 2+?,?Plantars are flexor?.?Motor Strength:?Proximal Muscles (out of 5):5 Distal Muscles (out of 5):5Neck Flexors (out of 5):5Neck Extensors (out of 5):5 Deltoid (out of 5):5Biceps (out of 5):5Triceps (out of 5):5Serratus Anterior (out of 5):5Wrist Extensors (out of 5):5APB (out of 5):5Finger Spread (out of 5):5Ileopsoas (out of 5):5Quadriceps (out of 5):5Hamstrings (out of 5):5Tibialis Anterior (out of 5):5Peronei (out of 5):5EDB (out of 5):5Gastrocnemius (out of 5):5Straight Leg Raising:??90 degrees.?Sensory Exam:??Normal light touch, temperature, pinprick, vibration and joint-position sensations?,?Rhomberg sign is absent.?Coordination:??no ataxia,?no titubation,?dvbrir-yw-oyca, qnux-ukmn-trdi test and rapid alternating movements were normal.?Gait Exam:??Within normal limits.?Cerebellar Signs:??Mqhlcv-oz-xnwk and qyaj-wm-hsto is normal,?no dysdiadochokinesia?.?Extrapyramidal System:??No tremor, rigidity with normal facial expressions,?No bradykinesia, no bradyphrenia. Normal arm swing and posture. No propulsion or retropulsion.?Speech:??Normal,?no dysphasia or dysarthria..? Mini Mental Status Exam: Level of Consciousness:??Alert.?Orientation:??Knows correct year, month, date, day and season,?Knows correct city, county and state. Knows correct location and floor.?Registration:??Able to register 3 objects.?Attention:??Serial 7's performed accurately.?Recall:??Able to recall 3 out of 3 objects.?Language:??Normal spontaneous speech, fluency, repetition,naming, comprehension, reading and writing.?Total Score:??30/30.? Assessment & Plan Assessment & Plan (1) Demyelinating disease: Code(s): G37.9 - Demyelinating disease of central nervous system, unspecified Category: Medical Plan Will do f/u MRI C spine and Brain with and without keiko in 6-12 months depending on clinical symptomotology.?? Coding Level of Care Code Est Pt Level 4 (54868) Diagnoses Demyelinating disease G37.9
--- OUTSIDE RECORDS SUMMARY | 2024-08-14 13:30 | XMS_ITS | Data Portability ---
Author Organization [place] [facility]Emergency Room[facility]23 Address [address] [place] [address] Care Team Providers Care Celebrity Manager Name Role Phone BECKY AUGUSTINE Hvac Service Tech Assessment No assessment recorded. Plan of Treatment Reminders Order Date Submit Date Provider Last Modified By Organization Details Last Modified Time Details Appointments None recorded. Lab cytology report, thin prep, smear or scraping, cervical or vaginal 2021 022 [facility] _[id number] [facility], [address], [place], [address], 3 03:46:12 Referral None recorded. Procedures None recorded. Surgeries None recorded. Imaging None recorded. Medication Orders Slynd 4 mg (28) tablet 2021 022 [id number], [address], [place], [id number], 2 03:36:31 Patient Targets Encounter Date Encounter Id Patient Goals Patient Target Last Modified By Organization Details Last Modified Time 01/11/2021 [id number] Pt is 30 yo G0 w/ Paragard [...] A HPV, RFX 16/18 ,45 diagnosis: Garett t MARIANO TURNER FOR INTRA EPITH ELIAL RICARDO Rodriguez OR WISAM VALENCIA . Not Available [facility] ([facility]) [address] [facility], [place], [address], 03/18/2021 05:09:16 03/16/19 22 03/17/2021 IGP, APTIM A HPV, RFX 16/18 ,45 specimen adequacy: Garett t Satis facto ry for evalu ation . Endoc ervic al and/o r squam ous metap lasti c cells (endo cervi wendy compo nent) are prese nt. Not Available [facility] ([facility]) [address] [place], [address], 03/18/2021 05:09:16 03/16/19 22 03/17/2021 IGP, APTIM A HPV, RFX 16/18 ,45 clinician provided ICD10: Garett green Z01.4 19 Not Available [facility] ([facility]) [address] [place], [address], 03/18/2021 05:09:16 03/16/19 22 03/17/2021 IGP, APTIM A HPV, RFX 16/18 ,45 performed by: Garett rider, Cytot nataly green (ASCP ) Not Available [facility] ([facility]) [address] [place], [address], 03/18/2021 05:09:16 03/16/19 22 03/17/2021 IGP, APTIM A HPV, RFX 16/18 ,45 . . Not Available [facility] ([facility]) [address] [place], [address], 03/18/2021 05:09:16 03/16/19 22 03/17/2021 IGP, APTIM A HPV, RFX 16/18 ,45 note: Commen t The Pap smear is a scree herb [...] . Not Available [facility] ([facility]) [address] [place], [address], 03/18/2021 05:09:16 03/16/19 22 03/17/2021 IGP, APTIM A HPV, RFX 16/18 ,45 test methodology: Garett t This liqui d based ThinP rep(R ) pap test was scree kandace with the use of an image guide nav woody. Not Available [facility] ([facility]) [address] [facility], [place], [address], 03/18/2021 05:09:16 03/16/19 22 03/17/2021 IGP, APTIM A HPV, RFX 16/18 ,45 HPV aptima Negati ve negati ve This nucle ic acid ampli ficat ion test detec ts fourt een high- risk HPV types (16,1 8,31, 33,35 ,39,4 5,51, 52,56 ,58,5 9,66, 68) witho ut diffe renti ation . Not Available [facility] ([facility]) [address] [place], [address], 03/18/2021 05:09:16 Result Notes Documentation Provider Name and Address Organization Details Recorded Time Cytology Report, Thin Prep, Smear Or Scraping, Cervical Or Vaginal : NILM/Neg HPV PATRICIA TAYLOR NP [address] [place] [address],[address], [place], [address], [place] [facility] 03/18/2021 10:27:32 Problems No Known Problems Procedures Surgical History Date Name Laterality Status Provider Name and Address Organization Details Recorded Time 02/08/202 2 Date of Last Pap Smear completed PATRICIA TAYLOR NP [address] [facility],[address], [place], [address], [place] [facility] 03/18/2021 10:27:23 1 IUD Removal WOB completed Sherly Skelton PA-C [address] [facility],[address], [place], [address], [place] [facility] 01/11/2021 10:07:54 0 cardiac ablation using fluoroscopy guidance completed Camila Downs [place] [facility] 03/10/2021 15:34:05 5 Colposcopy completed Sherly Skelton PA-C [address] [facility],[address], [place], [address], [facility] 01/11/2021 09:48:14 Imaging Results None recorded. Procedure Notes None recorded. Medical Equipment None Reported. Allergies Allergen ID Allergen Name Allergen Category Reaction Reaction Severity Criticality Documentation Date Start Date Code Code System Note Provider Name and Address Organization Details Recorded Time 65733 Bactrim medicatio n Not available Not available Not available 03/16/2021 39549 9 RxNorm Parveen Davis null, [place] [facility] 2 10:24:17 43207 Product containin g penicilli n (product) medicatio n Not available Not available Not available 03/16/2021 93648 8001 SNOMED Parveen Davis null, [place] [facility] 2 10:24:25 Medications Name Sig Start Date Stop Date Status Note LastModified by Organization Details LastModified Time Slynd 4 mg (28) tablet Take 1 tablet every day by oral route. active Not Available Not Available No t Available Vitals Date Recorded Body height Body mass index (BMI) Body weight Body temperature Systolic And Diastolic Provider Name and Address Organization Details Last Updated DateTime 03/16/2021 167.64 cm 39.7 kg/m2 032873. 72 g 97.7 [degF] 110/60 mm[Hg] Parveen Davis [facility] 2 10:24:06 Date Recorded Body height Body mass index (BMI) Body weight Heart rate Body temperature Systolic And Diastolic Provider Name and Address Organization Details Last Updated DateTime 1 167.64 cm 40.4 kg/m2 571424. 09 g 80 /min 98.4 [degF] 120/68 mm[Hg] Sherly rodriguez PA-C [address] [place] [address] [address], [place], [address], [place] [facility] 1 09:46:53 Social History Question Answer Notes LastModified by Organizat ion Details LastModified Time Tobacco Smoking Status Never Smoker Parveen Davis null, [place] [facility] 03/16/2021 10:28:55 Do You Have An Advance Directive? No [email or web address] Information n ot available 03/16/2021 Is Blood Transfusion Acceptable In An Emergency? Yes [email or web address] Information not available 03/16/2021 What Is Your Level Of Caffeine Consumption? Moderate [email or web address] Information not available 01/11/2021 In The 14 Days Before Symptom Onset, Have You Had Close Contact With A Laboratory-confirm ed COVID-19 While That Case Was Ill? No [email or web address] Information n ot available 03/16/2021 In The 14 Days Before Symptom Onset, Have You Had Close Contact With A Person Who Is Under Investigation For COVID-19 While That Person Was Ill? No [email or web address] Information not available 03/16/2021 What Type Of Diet Are You Following? REGULAR Information n ot available 03/16/2021 How Many Children Do You Have? 0 [email or web address] Information not available 03/16/2021 Do You Use Protection During Sex? No [email or web address] Information not available 01/11/2021 What Is Your Relationship Status? [email or web address] Information not available 01/11/2021 Do You Use Your Seat Belt Or Car Seat Routinely? Yes [email or web address] Information not available 03/16/2021 Are You Sexually Active? Yes [email or web address] Information not available 03/16/2021 Has Tobacco Cessation Counseling Been Provided? No Information not available 01/11/2021 Sex: Unknown Functional Status Question Answer Note LastModified by Organizat ion Details LastModified Time Do you use any illicit or recreational drugs? No Information not available 01/11/2021 What is your level of alcohol consumption? Occasional [email or web address] Information not available 01/11/2021 Are you currently employed? Yes [email or web address] Information not available 03/16/2021 Are you able to care for yourself? 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 Family History Relationship Description Onset Age of this Age Resolved Age Notes LastModified by Organization Details LastModified Time Father No current problems or disability [email or web address] Not available 09/2021 10:28:39 Mother No current problems or disability [email or web address] Not available 09/2021 10:28:39 Medical History Condition Response Allergies (Food, seasonal, environmental ) N Heart Problems N Anxiety/Depression N Other N Drug/Latex Allergies/Reactions N Blood Transfusion N Thyroid Problems N Kidney or Bladder [...] Immunizations Vaccine Type Date Status Note Provider Gabe ferreira and Address Organization Details Recorded Time COVID-19, mRNA, LNP-S, PF, 100 mcg/0.5mL dose or 50 mcg/0.25mL dose 04/20/2020 completed Parveen Davis null, [place] [facility] 03/16/2021 10:29:32 COVID-19, mRNA, LNP-S, PF, 100 mcg/0.5mL dose or 50 mcg/0.25mL dose 05/18/2020 completed Parveenjhon Davis null, [facility] 03/16/2021 10:29:47 Past Encounters Encounter ID Performer Location Encounter Start Date Encounter Closed Date Diagnosis/Indication Diagnosis SNOMED-CT Code Diagnosis ICD10 Code Diagnosis Note [id number] Sherly Skelton PA-C [facility] [place] [address] [address] [place] [address] 01/11/2021 08:58:00 01/11/2021 13:35:25 Pain in pelvis 00290571 R10.2 Removal of intrauterine device 57766317 Z30.432 [id number] BECKY AUGUSTINE NP [facility] [address] [facility] [address] [place] [address] 03/16/2021 10:02:38 03/16/2021 11:06:01 Gynecologic examination 95496129 Z01.419 SBE, contracept ion, safe relationsh ips, diet and exercise discussed. Has one male sexual partner, feels safe in this relationsh ip. Pap smear with cotesting collected today. Discussed ASCCP guidelines . Scanty menses on exam. Today is CD1. Might need repeat pap, pt v/u. Contracept ion care management 219255027 Z30.9 Hx of DVT. States her other [...] and bleeding expectatio ns. Patient safe to start POP according to [facility] guidelines and e-scribed for one year. Sample [...] None Recorded Advance Directives Directive N: Payers Insurance Date Sequence Insurance Name Policy Number Policy Patel Covered Member ID Patel Member ID Guarantor Name 03/13/2021 1 ROSEMARY [id number] Rupa Tran [id number] Rupa Tran Notes Date Note Type Note Provider Name and Address Organization Details Recorded Time 01/11/2021 text/html Pt is new to our practice, recently moved from [place]. c/o abd pain, cramping, heavy periods with [...] itching. She is sexually active, , monogamous. ~ MADELIN Oropeza-C [address] [place] [address],[address], [place], [address], [facility] 01/11/2021 10:11:12 03/16/2021 [...] next 1-2 years. Pt declines need for database modeler in room during today's exam. Becky charles, [place] [facility] 03/16/2021 11:36:07 OBGyn Episode No OBEpisode recorded.
--- OUTSIDE RECORDS SUMMARY | 2024-08-14 13:30 | XMS_ITS | Clinical Summary ---
Author Organization [address] [facility] Address [address] [place] [address] Phone Care Team Providers Care Case Mgr Name Role Phone Melida Madden MD Primary Care Provider Encounters Date Type Department Care Team Description 07/05/2024 Telephone [facility] [address] [facility] [address] [place] [address] Kate Zamudio MD from Last 3 Months Social History Tobacco Use Types Packs/Day Years Used Date Smoking Tobacco: Never Assessed Comments Unknown Sex and Gender Information Value Date Recorded Sex Assigned at Not on file Legal Sex Female 2:32 PM EDT Gender Identity Not on file Sexual Orientation Not on file Plan of Treatment Health Maintenance Due Date Last Done Comments DTaP,Tdap,and Td Vaccines (1 - Tdap) 07/11/2007 Hepatitis B Vaccines (1 of 3 - 19+ 3-dose series) 07/11/2007 Cervical Cancer Screening: P ap Smear 2009 COVID-19 Vaccine ( - 2023-2 5 season) 2023 Depression Screening 06/18/2024 HIV Screening 06/18/2024 Hepatitis C Screening 06/18/2024 Social Influencers of Health Screening 06/18/2024 Influenza Vaccine (Season Ended) 2024 HIB Vaccines Aged Out No longer eligi ble based on patient's age to complete this topic HPV Vaccines Aged Out No longer eligi ble based on patient's age to complete this topic Hepatitis A Vaccines Aged Out No long er eligible based on patient's age to complete this topic IPV Vaccines Aged Out No longer eligi ble based on patient's age to complete this topic MMR Vaccines Aged Out No longer eligi ble based on patient's age to complete this topic Meningococcal ACWY Vaccine Aged Out N o longer eligible based on patient's age to complete this topic Meningococcal B Vaccine Aged Out No l onger eligible based on patient's age to complete this topic Pneumococcal Vaccine: Pediat rics (0 to 5 Years) and At-Risk Patients (6 to 49 Years) Aged Out No longer eligible b ased on patient's age to complete this topic RSV Immunization Patients Un dilan 20 months Aged Out No longer eligible b ased on patient's age to complete this topic Varicella Vaccines Aged Out No longer eligible based on patient's age to complete this topic [place] [address] Care Teams Case Mgr Relationship Specialty Start Date End Date Melida Madden MD [address] [address] PCP - General Internal Medicine 06/17/24
== END 2024-08-14 12:59 | disposition home or self-care (01) ==
LOC: HO.HSM 12:41
PROVIDERS: PCP Pediatrics; Referring Provider Pediatrics; Visit Provider Psychiatry & Neurology Neurology
DX: G37.9 Demyelinating disease of central nervous system, unspecified (principal)
CPT/HCPCS: 99214